=== PATIENT | female | born 1965 | race Caucasian/White ===

== ENCOUNTER 2020-05-07 15:02 | Emergency (ER) | payer BC ==
--- OUTSIDE RECORDS SUMMARY | 2020-05-07 16:22 | XMS REPORT | Continuity of Care Document ---
:1965 Author Organization [facility] Information [place] Care Team Providers Name Role Phone [facility] Information Exchange Unavailable Un available Problems Problem Status Onset Classification Date Comments Sourc e Date Reported INCISIONAL HERNIA Active 11/09/19 WITHOUT OBSTRUCTION 20 [facility] Anxiety (finding) Active Problem 12/09/2019 [facility] Medical Group,[facility] Depressive disorder Active Problem 12/09/2019 Medical (disorder) Group,[facility] Disease of thyroid Active Problem 12/09/2019 Medical gland (disorder) Krishna up,[facility] Gastric band Active Problem 12/09/2019 Med ical procedure Group, complication Memoria (disorder) [facility] Gastroesophageal Active Problem 12/09/2019 Medical reflux disease Group ,[facility] (disorder) [facility] History of Active Problem 12/09/2019 Medic al bariatric surgical G roup, procedure [facility] (situation) [facility] Hypertensive Active Problem 12/09/2019 Med ical disorder, systemic G roup, arterial (disorder) [facility] Incisional hernia Active Problem 12/09/2019 [facility] Medical (disorder) Group,[facility] Morbid obesity Active Problem 12/09/2019 [facility] edical (disorder) Group,[facility] Patient encounter Active Problem 12/09/2019 [facility] Medical status (finding) Krishna up,[facility] Medications Medication Details Route Status Patient Ordering Order Source Instructions Provider Date tramadol 50 mg, 1 tab, Inactive hydrochloride 50 Route: PO, Drug 2019 [facility] Oral Tablet form: TAB, [facility] ONCE, Dosing Weight 131.003, kg, Start date: 11/20/19 10:57:00 CDT, Stop date: 11/20/19 10:57:00 CDT dexamethasone Route: IV, Drug Inactive H (ANES) form: INJ, 2019 [facility] ONCE, Stop [facility] date: 11/20/19 9:51:00 CDT famotidine (ANES) Route: IV, Drug Inactive 11/19 form: INJ, 2019 [facility] ONCE, Stop [facility] date: 11/20/19 9:51:00 CDT ondansetron (ANES) Route: IV, Drug Inactive 11/09 form: INJ, 2019 date: 11/20/19 9:51:00 CDT sugammadex (ANES) Route: IV, Drug Inactive 11/19 form: SOLN 2019 date: 11/20/19 9:51:00 CDT fentaNYL (ANES) Route: IV, Drug Inactive form: INJ, 2019, date: 11/20/19 9:50:00 CDT lidocaine (ANES) Route: IV, Drug Inactive form: [id number] date: 11/20/19 9:50:00 CDT propofol (ANES) Route: IV, Drug Inactive form: [id number] date: 11/20/19 9:50:00 CDT rocuronium (ANES) Route: IV, Drug Inactive 11/19 form: INJ, 2019, date: 11/20/19 9:50:00 CDT ceFAZolin (ANES) Route: IV, Drug Inactive form: [id number] date: 11/20/19 9:50:00 CDT succinylcholine Route: IV, Drug Inactive (ANES) form: INJ2019 date: 11/20/19 9:50:00 CDT midazolam (ANES) Route: IV, Drug Inactive form: SOLN, 2019, date: 11/20/19 9:35:00 CDT acetaminophen Route: IV, Drug Inactive H (ANES) 10 mg form: INJ, 2019 date: 11/20/19 9:22:00 CDT, Stop date: 11/20/19 10:22:00 CDT Lactated Ringers Route: IV, Inactive Injection [facility] mL 1,000, Start City date: 11/20/19 9:03:00 CDT, Stop date: 11/20/19 10:03:00 CDT Calcium Chloride 1,000 mL, Rate: No Longer 11/19 0.0014 MEQ/ML / 125 ml/hr, [facility] Pot[facility] Chloride Infuse over: [facility] 0.004 MEQ/ML / hr, Route: IV, Sodium Chloride Dosing Weight 0.103 MEQ/ML / 131.003 kg, Sodium Lactate Total Volume: 0.028 MEQ/ML 1,000, Start Injectable date: 11/20/19 Solution 9:02:00 CDT, Duration: 30 day, Stop date: 12/20/19 9:01:00 CDT, 2.59, m2, 0 Acetaminophen Notes: Do not No Longer exceed [address] gm/day. (Same City as: Tylenol) Acetaminophen 21.7 Notes: Do not No Longer 11/19 MG/ML / exceed 4gm/day [address] Hydrocodone of [facility] Bitartrate 0.67 acetaminophen. MG/ML Oral (Same as: [place] Solution 325/7.5) Promethazine Notes: Do not No Longer give IV push. [address] (Same as: [facility] Phenergan) enalapril Notes: (Same No Longer as: Vasotec-IV) [address] Ondansetron 4 MG 4 mg = 1 tab, Active H Oral Tablet PO, Q6H, PRN 2019 Mem[facility] l [Zofran] Nausea/[place] , # 30 tab, 0 Refill(s), Pharmacy: [facility] #[id number], 180.34, cm, 11/20/19 8:26:00 CDT, Height, 131.003, kg, 11/20/19 8:26:00 CDT, Weight tramadol 50 mg = 1 tab, Active hydrochloride 50 PO, BID, X 15 2019 [facility] MG Oral Tablet day, # 30 tab, Ci ty 0 Refill(s), Pharmacy: [facility] #[id number], 180.34, cm, 11/20/19 8:26:00 CDT, Height, 131.003, kg, 11/20/19 8:26:00 CDT, Weight Labetalol Notes: (Same No Longer as: Normodyne, [address] Trandate) Push City over 2 minutes Give bolus over 2-3 minutes. Morphine Notes: (Same No Longer as:MORPhine [address] Sulfate) [facility] Hydromorphone Notes: Same as No Longer H Dilaudid [address] Flumazenil Notes: (Same No Longer as: Romazicon) [address] Naloxone Notes: Same as No Longer Narcan [address] Ephedrine Notes: final No Longer concentration [address] mg/mL [facility] Albuterol 0.83 Notes: SEE RT No Longer H MG/ML Inhalant DOCUMENTATION [address] orial Solution (Same as: [facility] Proventil) Diphenhydramine Notes: (Same No Longer H as: Benadryl) [address] glycopyrronium Notes: (Same No Longer as: Robinul) [address] Meperidine Notes: (Same No Longer as: Demerol) [address] "Use Precaution [place] in Elderly, Seizure disorders, and Renal impairment&quot ; Ondansetron Notes: (Same No Longer as: Zofran) [address] MEDICATION City WASTE Product Size: 4 mg Product Wasted: ___ mg ceFAZolin + Notes: (Same No Longer sterile water 30 As: Ancef, 2019 Chivo rial mL Kefzol) [facility] MEDICATION WASTE Product Size: 1000 mg Product Wasted: ___ mg heparin Notes: porcine No Longer heparin [address] Oracea 40 mg, PO, QAM, Active 0 Refill(s) 2019 [facility] Doxycycline 40 MG 40 mg = 1 cap, Active Enteric Coated PO, QAM, 0 [facility] [Oracea] Refill(s) [facility] duloxetine 60 MG 60 mg = 1 cap, Active Enteric Coated PO, Daily, # 30 2019 [facility] Capsule [Cymbalta] cap, 1 City Refill(s) brexpiprazole 2 MG 2 mg = 1 tab, Active Oral Tablet PO, Daily, 0 2019 Memoria l [Rexulti] Refill(s) [facility] atomoxetine 40 MG 40 mg = 1 cap, Active Oral Capsule PO, QA, # 90 2019 Mem[facility] ial [Strattera] cap, 0 [facility] Refill(s) lisdexamfetamine 50 mg = 1 cap, Active dimesylate 50 MG PO, QAM, # 30 2019 M [facility] Oral Capsule cap, 0 [facility] [Vyvanse] Refill(s) losartan 50 mg 50 mg = 1 tab, Active oral tablet PO, Daily, # 30 2019 Chivo rial tab, 1 City Refill(s) levothyroxine 100 100 microgram = Active mcg (0.1 mg) oral 1 tab, PO, 2020 Mem orial tablet Daily, # 90 City tab, 0 Refill(s) Allergies, Adverse Reactions, Alerts Substance Category Reaction Severity Reaction Status Date Comments S ource type Reported aspirin Assertion Hives, Drug Active Hives allergy Medical Group Immunizations No Data Provided for This Section Results Order Name Results Value Reference Date Interpretation Comments Aracely rce Range IMMUNOLOGY Coronavirus Not Detected Not 11/15 (COVID-19) *NA* Detected /2019 [facility] (11/16/19 11:09 AM) [facility] CHEM PANEL Glucose Lvl 109 70 - 99 11/15 [facility] ELECTROLYTES Sodium Lvl 140 135 - 145 11/15 [facility] ELECTROLYTES Potassium Lvl 4.1 3.5 - 5.1 11/15 [facility] HEMATOLOGY Hgb 12.7 12.0 - 11/15 16.0 [facility] HEMATOLOGY Hct 38.0 36.0 - 11/15 48.0 [facility] Pathology Reports No Data Provided for This Section Diagnostic Reports No Data Provided for This Section Consultation Notes No Data Provided for This Section Discharge Summaries No Data Provided for This Section History and Physicals No Data Provided for This Section Vital Signs Vital Sign Value Date Comments Source Respitory Rate 18 11/20/2019 [facility] C ity Systolic (mm Hg) 147 11/20/2019 [facility] Diastolic (mm Hg) 77 11/20/2019 Memoria l [facility] Respitory Rate 19 11/20/2019 [facility] it Systolic (mm Hg) 163 11/20/2019 [facility] Diastolic (mm Hg) 85 11/20/2019 [facility] Respitory Rate 18 11/20/2019 [facility] it Systolic (mm Hg) 158 11/20/2019 [facility] Diastolic (mm Hg) 74 11/20/2019 [facility] Height 180.34 cm 11/20/2019 [facility] Cit y Weight 131.003 11/20/2019 [facility] Cit y BMI Calculated 40.28 11/20/2019 [facility] ity Heart Rate 99 11/16/[address] [facility] y Systolic (mm Hg) 150 11/16/2019 [facility] Diastolic (mm Hg) 93 11/16/2019 [facility] [place] Height 172.72 cm 11/16/[address] [facility] y Weight 128.182 11/16/[address] [facility] y BMI Calculated 42.97 11/16/2019 [facility] it Encounters Location Location Encounter Encounter Reason Attending ADM [place] Stat us Source Details Type Number For Provider Date Date Visit Outpatient [id number] Bi 11/04 [facility] /[address] [place] [address] Surgery [id number] Bi 11/19 11/19 [facility] /20192020 [facility] Outpatient [id number] Bi 12/06 [facility] [address] [place] [address] Outpatient [id number] Bi 12/06 12/07 [facility] [place] [facility] [id number] Bi 12/[address] Procedures Procedure Code Date Perfomer Comments Source Diabetic retinal eye [id number] [facility] edical exam 0 Group,[facility] Pap smear and HPV [id number] Medical cotesting 9 Group,[facility] Diagnostic mammogram [id number] [facility] edical 7 Group,[facility] Laparoscopic [id number] Medical cholecystectomy 3 Group,[facility] Arthroscopy of knee [id number] [facility] dical 0 Group,[facility] Laparoscopic [id number] Medical adjustable gastric 6 Group, banding [facility] Assessment and Plan No Data Provided for This Section Plan of Care No Data Provided for This Section Social History Social History Date Source Social History TypeResponse 11/16/2019 [facility] Smoking Status Never smoker; Exposure to Tobacco Smoke None; Cigarette Smoking Last 365 Days No; Reg Smoking Cessation Counseling No entered on: 11/16/19 Social History TypeResponse 11/16/2019 [facility] Smoking Status Never smoker; Exposure to Tobacco Smoke None; Cigarette Smoking Last 365 Days No; Reg Smoking Cessation Counseling No entered on: 11/16/19 Family History No Data Provided for This Section Advance Directives No Data Provided for This Section Functional Status No Data Provided for This Section
--- OUTSIDE RECORDS SUMMARY | 2020-05-07 16:23 | XMS REPORT | Continuity of Care Document ---
:[address] [facility] t Address [address] [place] [address] Care Team Providers Name Role Phone Bi Gunn Attending Clinician Payers Payer Name Policy Type Policy Number Effective Date Expiration Date S ource Problems Condition Condition Condition Status Onset Resolution Last Treating Co mments Source Name Details Category Date Date Treatment Clinician Date INCISIONAL Diagnosis Active 2019-11-20 Memoria HERNIA 11-08 07:25:00 l WITHOUT 00:00: Tonio OBSTRUCTIO INCISIONAL 00 N OR HERNIA WITHOUT OBSTRUCTIO N OR Active 11/09/[address] [facility] Anxiety Problem Active 2019-12-09 Chivo kandice (finding) 23:49:40 l Anxiety [place] (finding) Active Problem 12/09/2019 Medical [facility] Depressive Problem Active 2019-12-09 M emoria disorder 23:49:40 l (disorder) Bijan n Depressive disorder (disorder) Active Problem 12/09/2019 Medical [facility] Disease of Problem Active 2019-12-09 M emoria thyroid 23:49:40 l gland Disease Tonio (disorder) of thyroid gland (disorder) Active Problem 12/09/2019 Medical [facility] Gastric Problem Active 2019-12-09 Chivo kandice band 23:49:40 l procedure Gastric Herm annamarie complicati band on procedure (disorder) complicati on (disorder) Active [facility]09[facility] Gastroesop Problem Active 2019-12-09 M emoria hageal 23:49:40 l reflux [place] disease Gastroesop (disorder) hageal reflux disease (disorder) Active Problem 12/09/2019 Medical Group,[facility] History of Problem Active 2019-12-09 M emoria bariatric 23:49:40 l surgical History Meryl nn procedure of (situation bariatric ) surgical procedure (situation ) Active Problem 12/09/2019 Medical Group,[facility] Hypertensi Problem Active 2019-12-09 M emoria ve 23:49:40 l disorder, [place] systemic Hypertensi arterial ve (disorder) disorder, systemic arterial (disorder) Active Problem 12/09/2019 Medical Group,[facility] Incisional Problem Active 2019-12-09 M emoria hernia 23:49:40 l (disorder) Bijan n Incisional hernia (disorder) Active Problem 12/09/2019 Medical Group,[facility] Morbid Problem Active 2019-12-09 Memor ia obesity 23:49:40 l (disorder) Morbid Herm annamarie obesity (disorder) Active Problem 12/09/2019 Medical [facility] Patient Problem Active 2019-12-09 Chivo kandice encounter 23:49:40 l status Patient [place] (finding) encounter status (finding) Active Problem 12/09/2019 Medical [facility] Allergies, Adverse Reactions, Alerts Allergy Allergy Status Severity Reaction(s) Onset Inactive Treating Comm ents Source Name Type Date Date Clinician aspirin aspirin Active Ciarra Elizalde Social History Smoking Status Start Date Stop Date Source Social History [facility] Medications Ordered Filled Start Stop Current Ordering Indication Dosage Frequency Signature Comments Components Source Medication Medication Date Date Medication? Clinician (SIG) Name Name tramadol No 50 mg, 1 Memor ia hydrochlori 8-11 tab, l de 50 MG 15:57: Route: PO, Her vicente Oral Tablet 00 Drug form: TAB, ONCE, Dosing Weight 131.003, kg, Start date: 11/20/19 10:57:00 CDT, Stop date: 11/20/19 10:57:00 CDT dexamethaso No Route: IV, Memoria ne (ANES) 11-19 Drug form: l 14:51: INJ, ONCE, Tonio 00 Stop date: 11/20/19 9:51:00 CDT famotidine No Route: IV, M emoria (ANES) 11-19 Drug form: l 14:51: INJ, ONCE, Stop date: 11/20/19 9:51:00 CDT ondansetron 2020-0 No Route: IV, Memoria (ANES) 11-19 Drug form: l 14:51: INJ, ONCE, Stop date: 11/20/19 9:51:00 CDT sugammadex 2020-0 No Route: IV, Malou emoria (ANES) 11-19 Drug form: l 14:51: SOLN, ONCE, Stop date: 11/20/19 9:51:00 CDT fentaNYL 2020-0 No Route: IV, Mem oria (ANES) 11-19 Drug form: l 14:50: INJ, ONCE, Stop date: 11/20/19 9:50:00 CDT lidocaine 2020-0 No Route: IV, Me moria (ANES) 11-19 Drug form: l 14:50: INJ, ONCE, Stop date: 11/20/19 9:50:00 CDT propofol 2020-0 No Route: IV, Mem oria (ANES) 11-19 Drug form: l 14:50: INJ, ONCE, Stop date: 11/20/19 9:50:00 CDT rocuronium 2019-0 No Route: IV, Malou emoria (ANES) 11-19 Drug form: l 14:50: INJ, ONCE, Stop date: 11/20/19 9:50:00 CDT ceFAZolin 2020-0 No Route: IV, Me moria (ANES) 11-19 Drug form: l 14:50: INJ, ONCE, Stop date: 11/20/19 9:50:00 CDT succinylcho 2020-0 No Route: IV, Memoria line (ANES) 11-19 Drug form: l 14:50: INJ, ONCE, Stop date: 11/20/19 9:50:00 CDT midazolam 2020-0 No Route: IV, Me moria (ANES) 11-19 Drug form: l 14:35: SOLN, ONCE, Stop date: 11/20/19 9:35:00 CDT acetaminoph 2020-0 No Route: IV, Memoria en (ANES) 8 Drug form: l 10 mg 14:22: INJ, Start Bijan n 00 date: 11/20/19 9:22:00 CDT, Stop date: 11/20/19 10:22:00 CDT Lactated 2019- No Route: IV, Mem oria Ringers 8- Total l Injection 14:03: Volume: Meryl nn IV (ANES) 00 1,000, 1000 mL Start date: 11/20/19 9:03:00 CDT, Stop date: 11/20/19 10:03:00 CDT Calcium 2019-0 No 1,000 mL, Memor ia Chloride 11-19 Rate: 125 l 0.0014 14:02: ml/hr, Tonio MEQ/ML / 00 Infuse Potassium over: 8 Chloride hr, Route: 0.004 IV, Dosing MEQ/ML / Weight Sodium 131.003 Chloride kg, Total 0.103 Volume: MEQ/ML / 1,000, Sodium Start Lactate date: 0.028 11/20/19 MEQ/ML 9:02:00 Injectable CDT, Solution Duration: 30 day, Stop date: 12/20/19 9:01:00 CDT, 2.59, m2, 0 Acetaminoph No Notes: Do M emoria en 8- not exceed l 14:02: 4 gm/day. Tonio 00 (Same as: Tylenol) Acetaminoph No Notes: Do M emoria en 21.7 8- not exceed l MG/ML / 14:02: 4gm/day of Herm annamarie Hydrocodone 00 acetaminop Bitartrate hen. 0.67 MG/ML (Same as: Oral [place] Solution 325/7.5) Promethazin No Notes: Do M emoria e 8-11 not give l 14:02: IV push. Tonio 00 (Same as: Phenergan) enalapril No Notes: Memori a - (Same as: l 14:02: Vasotec-IV Tonio 00 ) Ondansetron 2019-0 Yes 4 mg = 1 Me moria 4 MG Oral 8 tab, PO, l Tablet 14:00: Q6H, PRN Tonio [Zofran] 00 Nausea/Vom iting, # 30 tab, 0 Refill(s), Pharmacy: [facility] #[id number], 180.34, cm, 11/20/19 8:26:00 CDT, Height, 131.003, kg, 11/20/19 8:26:00 CDT, Weight tramadol Yes 50 mg = 1 Chivo kandice hydrochlori 8-11 tab, PO, l de 50 MG 14:00: BID, X 15 Herm annamarie Oral Tablet 00 day, # 30 tab, 0 Refill(s), Pharmacy: [facility] #[id number], 180.34, cm, 11/20/19 8:26:00 CDT, Height, 131.003, kg, 11/20/19 8:26:00 CDT, Weight Labetalol No Notes: Memori a - (Same as: l 13:59: Normodyne, Trandate) Push over 2 minutes Give bolus over 2-3 minutes. Morphine No Notes: Memoria 11-19 (Same l 13:59: as:MORPhin [place] 00 e Sulfate) Hydromorpho No Notes: Chivo kandice ne 11-19 Same as l 13:59: Dilaudid Flumazenil No Notes: Memor ia 11 (Same as: l 13:59: Romazicon) Naloxone No Notes: Memoria 8-11 Same as l 13:59: Narcan Ephedrine No Notes: Memori a 8-11 final l 13:59: concentrat Tonio 00 ion 5 mg/mL Albuterol No Notes: SEE Me moria 0.83 MG/ML 11-19 RT l Inhalant 13:59: DOCUMENTAT Her vicente Solution 00 ION (Same as: Proventil) Diphenhydra No Notes: Chivo kandice mine 8-11 (Same as: l 13:59: Benadryl) glycopyrron No Notes: Chivo kandice ium 8-11 (Same as: l 13:59: Robinul) Meperidine No Notes: Memor ia 8-11 (Same as: l 13:59: Demerol) "Use Precaution in Elderly, Seizure disorders, and Renal impairment " Ondansetron 2019-0 No Notes: Chivo kandice 11-19 (Same as: l 13:59: Zofran) MEDICATION WASTE Product Size: 4 mg Product Wasted: ___ mg ceFAZolin + 2020-0 No Notes: Chivo kandice sterile 11-19 (Same As: l water 30 mL 03:00: AncMarlon coburn Kefzol) MEDICATION WASTE Product Size: 1000 mg Product Wasted: ___ mg heparin 2020-0 No Notes: Memoria 11-19 porcine l 03:00: heparin Oracea 2020-0 Yes 40 mg, PO, Memor ia 8-07 QAM, 0 l 15:30: Refill(s) Doxycycline 2020-0 Yes 40 mg = 1 M emoria 40 MG 8-07 cap, PO, l Enteric 15:30: QAM, 0 [place] Coated 00 Refill(s) Capsule [Oracea] duloxetine 2020-0 Yes 60 mg = 1 Me moria 60 MG 8-07 cap, PO, l Enteric 15:29: Daily, # Bijan n Coated 00 30 cap, 1 Capsule Refill(s) [Cymbalta] brexpiprazo 2019-0 Yes 2 mg = 1 Me moria le 2 MG 8-07 tab, PO, l Oral Tablet 15:29: Daily, 0 He rmann [Rexulti] 00 Refill(s) atomoxetine 2020-0 Yes 40 mg = 1 M emoria 40 MG Oral 8-07 cap, PO, l Capsule 15:29: QAM, # 90 Meryl nn [Strattera] 00 cap, 0 Refill(s) lisdexamfet 2020-0 Yes 50 mg = 1 M emoria amine 8-07 cap, PO, l dimesylate 15:29: QAM, # 30 He rmann 50 MG Oral 00 cap, 0 Capsule Refill(s) [Vyvanse] losartan 50 2020-0 Yes 50 mg = 1 M emoria mg oral 8-07 tab, PO, l tablet 15:28: Daily, # Tonio 00 30 tab, 1 Refill(s) levothyroxi 2020-0 Yes 100 Memori a ne 100 mcg 8-07 microgram l (0.1 mg) 15:28: = 1 tab, Meryl nn oral tablet 00 PO, Daily, # 90 tab, 0 Refill(s) Vital Signs Vital Name Observation Time Observation Value Comments Source Respitory Rate 2019-11-20 16:20:00 Memori al [place] Systolic (mm Hg) 2019-11-20 16:20:00 Chivo rial [place] Diastolic (mm Hg) 2019-11-20 16:20:00 Mem orial [place] Respitory Rate 2019-11-20 16:15:00 Memori al [place] Systolic (mm Hg) 2019-11-20 16:15:00 Chivo rial [place] Diastolic (mm Hg) 2019-11-20 16:15:00 Mem orial [place] Respitory Rate 2019-11-20 16:00:00 Memori al [place] Systolic (mm Hg) 2019-11-20 16:00:00 Chivo rial [place] Diastolic (mm Hg) 2019-11-20 16:00:00 [facility] orial [place] Height 2019-11-20 13:26:00 180.34 cm [facility] Weight 2019-11-20 13:26:00 [facility] BMI Calculated 2019-11-20 13:26:00 Memori al [place] Heart Rate 2019-11-16 15:30:00 [facility] [place] Systolic (mm Hg) 2019-11-16 15:30:00 Chivo rial [place] Diastolic (mm Hg) 2019-11-16 15:30:00 [facility] orial [place] Height 2019-11-16 15:07:00 172.72 cm [facility] Weight 2019-11-16 15:07:00 [facility] BMI Calculated 2019-11-16 15:07:00 Katiana [facility] Procedures Procedure Date / Time Performing Clinician Source Performed Diabetic retinal eye exam 2019-04-11 00:00:00 Ak edward Elizalde Pap smear and HPV cotesting 2018-04-11 00:00:00 [facility] Diagnostic mammogram 2016-04-11 00:00:00 Ciarra Elizalde Laparoscopic 2012-04-11 00:00:00 [facility] Her vicente cholecystectomy Arthroscopy of knee 2009-04-11 00:00:00 [facility] Tonio Laparoscopic adjustable 2005-04-11 00:00:00 Chivokira davis [place] gastric banding Encounters Start End Encounter Admission Attending Care Care Encounter Source Date/Time Date/Time Type Type Clinicians Facility Department ID 2019-12-07 2019-12-07 Outpatient Luis A [facility] [id number] 11:00:00 23:59:59 Bi 01 2019-11-20 2019-11-20 Outpatient Luis A [facility] [id number] 07:23:00 11:50:00 Bi 2019-11-20 2019-11-20 Outpatient Luis A [facility] [id number] 09:30:00 09:30:00 Bi 2019-11-20 2019-11-20 Outpatient [facility]500 Memoria 07:23:00 07:23:[address] [place] [facility] l Results Test Description Test Time Test Comments Results Result Sourc e Comments IMMUNOLOGY 2019-11-16 Not Detected [facility] 16:09:00 *NA*(11/16/19 Tonio 11:09 AM) CHEM PANEL 2019-11-16 109 [facility] 15:37:00 [place] ELECTROLYTES 2019-11-16 140 [facility] 15:37:00 [place] ELECTROLYTES 2019-11-16 4.1 [facility] 15:37:00 [place] HEMATOLOGY 2019-11-16 12.7 [facility] 15:37:00 [place] HEMATOLOGY 2019-11-16 38.0 Memorial 15:37:00 Tonio
--- NOTE | 2020-05-07 18:00 | RAD REPORT ---
EXAM DESCRIPTION: USExtremity Venous Uni Ltd05/07/2020 5:38 pm CLINICAL HISTORY: left leg pain and swelling. COMPARISON: 2009 FINDINGS: Left common femoral, superficial femoral, popliteal and posterior tibial veins are compre ssible and demonstrate augmentation. Doppler demonstrates good flow. IMPRESSION: No evidence of deep venous thrombosis involving the left lower extremity.
--- NOTE | 2020-05-07 21:48 | ER ---
Nurse's Notes [facility] Name: Chandler Conte Age: 54 yrs Sex: Female : 1965 Arrival Date: 05/07/2020 Time: 15:08 Bed 4 Private MD: Griffin Daugherty V Diagnosis: Pain in left knee Presentation: 05/07 15:50 Chief complaint: Patient states: left knee pain x 4 weeks ago. Pt states "I saw Dr. leslye Kerns about 3 weeks ago and he gave me a steroid shot and he said I need an MRI but I thought I was going to be okay". Pt reports increased left knee pain x 2 days ago. Coronavirus screen: Client denies travel out of the [place] in the last 14 days. At this time, the client does not indicate any symptoms associated with coronavirus-19. Ebola Screen: Patient negative for fever greater than or equal to 101.5 degrees Fahrenheit, and additional compatible Ebola Virus Disease symptoms. Initial Sepsis Screen: Does the patient meet any 2 criteria? No. Patient's initial sepsis screen is negative. Does the patient have a suspected source of infection? No. Patient's initial sepsis screen is negative. Risk Assessment: Do you want to hurt yourself or someone else? Patient reports no desire to harm self or others. Onset of symptoms was March 2020. 15:50 Acuity: DAVID 3 aa5 15:50 Method Of Arrival: Ambulatory aa5 Historical: - Allergies: 15:54 Aspirin; aa5 - Home Meds: 15:54 losartan oral oral [Active]; Cymbalta oral oral [Active]; levothyroxine oral [Active]; aa5 - PMHx: 15:54 Hypertension; Thyroid problem; aa5 - PSHx: 15:54 Tubal ligation; Mastectomy, Right; ; Knee surgery; Cholecystectomy; lap band; aa5 - Immunization history:: Adult Immunizations unknown. - Social history:: Smoking status: Patient denies any tobacco usage or history of. - Family history:: not pertinent. - Hospitalizations: : No recent hospitalization is reported. Screenin:30 Abuse screen: Denies threats or abuse. Nutritional screening: No deficits noted. ea Tuberculosis screening: No symptoms or risk factors identified. Fall Risk IV access (20 points). Assessment: 21:31 General: Appears in no apparent distress. Behavior is calm, cooperative, appropriate ea for age. Pain: Complains of pain in left knee. Neuro: Level of Consciousness is awake, alert, obeys commands, Oriented to person, place, time, situation. Cardiovascular: Patient's skin is warm and dry. Respiratory: Airway is patent Respiratory effort is even, unlabored, Respiratory pattern is regular, symmetrical. Derm: Skin is pink, warm \\T\\ dry. Vital Signs: 15:50 BP 179 / 110; Pulse 107; Resp 20 S; Temp 97.0(TE); Pulse Ox 99% on R/A; aa5 ED Course: 15:08 Patient arrived in ED. am4 15:09 Salbador Jimenez MD is Private Physician. am4 15:09 Griffin Daugherty MD is Private Physician. am4 15:50 Arm band placed on. aa5 15:52 Triage completed. aa5 17:19 Patient taken to ultrasound. via wheelchair. is 17:38 US Extremity Venous Unilateral Ltd In Process Unspecified. EDMS 17:38 Ultrasound completed. Patient tolerated well. Patient moved back from ultrasound. is 21:26 Bessie Crespo, RN is Primary Nurse. ea 21:27 Jcarlos Maddox MD is Attending Physician. rn 21:30 Patient has correct armband on for positive identification. Bed in low position. Call ea light in reach. Side rails up X2. 21:47 Mike Kerns MD is Referral Physician. rn 22:01 No provider procedures requiring assistance completed. Patient did not have IV access ea during this emergency room visit. Administered Medications: 21:48 Drug: Decadron 10 mg Route: IM; Site: right vastus lateralis; ea 22:02 Follow up: Response: No adverse reaction ea 21:48 Drug: Demerol 25 mg Route: IM; Site: left vastus lateralis; ea 22:01 Follow up: Response: No adverse reaction ea Outcome: 21:47 Discharge ordered by . rn 22:01 Discharged to home via wheelchair, with crutches. ea 22:01 Condition: good 22:01 Discharge instructions given to patient, Instructed on discharge instructions, follow up and referral plans. medication usage, Demonstrated understanding of instructions, follow-up care, medications, Prescriptions given X 1. 22:02 Patient left the ED. ea Signatures: Dispatcher [employer] Jcarlos Mccarty MD MD rn Calderon, Audri, RN RN aa5 Bessie Crespo RN DEBRA Squires, Francie Delgado
--- NOTE | 2020-05-07 21:48 | EDPHYS ---
Physician Documentation [facility] Name: Chandler Conte Age: 54 yrs Sex: Female : 1965 Arrival Date: 05/07/2020 Time: 15:08 Bed 4 Private MD: Griffin Daugherty V ED Physician Jcarlos Maddox HPI: 05/07 21:40 This 54 yrs old Female presents to ER via Ambulatory with complaints of Knee rn Pain. 21:40 The patient presents with pain. The complaints affect the left knee. Onset: The rn symptoms/episode began/occurred 3 week(s) ago. Modifying factors: The symptoms are alleviated by OTC meds, remaining still, the symptoms are aggravated by weight bearing, bending knee. Severity of symptoms: At their worst the symptoms were moderate, in the emergency department the symptoms are unchanged. The patient has not experienced similar symptoms in the past. The patient has been recently seen by a physician:. Reports left knee pain, began 3-4 weeks ago after long car ride, seen by Dr. Kerns, had negative xray, had intraarticular injection, never really felt better. Has MRI scheduled tomorrow. Reports was having trouble sleeping 2/2 pain, none prescribed, and came in for pain control and to see if anything else needs to be done. No fever, no hx of gout/pseudogout. No trauma. . Historical: - Allergies: 15:54 Aspirin; aa5 - Home Meds: 15:54 losartan oral oral [Active]; Cymbalta oral oral [Active]; levothyroxine oral [Active]; aa5 - PMHx: 15:54 Hypertension; Thyroid problem; aa5 - PSHx: 15:54 Tubal ligation; Mastectomy, Right; ; Knee surgery; Cholecystectomy; lap band; aa5 - Immunization history:: Adult Immunizations unknown. - Social history:: Smoking status: Patient denies any tobacco usage or history of. - Family history:: not pertinent. - Hospitalizations: : No recent hospitalization is reported. ROS: 21:40 Constitutional: Negative for fever, chills, and weight loss, Cardiovascular: Negative rn for chest pain, palpitations, and edema, Respiratory: Negative for shortness of breath, cough, wheezing, and pleuritic chest pain, MS/Extremity: + left knee pain, no redness or warmth, no injury Skin: Negative for injury, rash, and discoloration, Neuro: Negative for weakness, numbness, tingling Exam: 21:40 Constitutional: This is a well developed, well nourished patient who is awake, alert, rn and in no acute distress. MS/ Extremity: Pulses equal, no cyanosis. Neurovascular intact. + mild painful ROM left knee without laxity, no warmth, no erythema, no overlying skin changes, no calf tenderness Vital Signs: 15:50 BP 179 / 110; Pulse 107; Resp 20 S; Temp 97.0(TE); Pulse Ox 99% on R/A; aa5 MDM: 21:27 Patient medically screened. rn 21:40 Differential diagnosis: tendonitis, arthritis, knee effusion, DVT. Data reviewed: vital rn signs, nurses notes, radiologic studies, doppler, and as a result, I will discharge patient. Counseling: I had a detailed discussion with the patient and/or guardian regarding: the historical points, exam findings, and any diagnostic results supporting the discharge/admit diagnosis, radiology results, the need for outpatient follow up, to return to the emergency department if symptoms worsen or persist or if there are any questions or concerns that arise at home. Response to treatment: the patient's symptoms have mildly improved after treatment, and as a result, I will discharge patient. Special discussion: I discussed with the patient/guardian in detail that at this point there is no indication for admission to the hospital. It is understood, however, that if the symptoms persist or worsen the patient needs to return immediately for re-evaluation. Based on the history and exam findings, there is no indication for further emergent testing or inpatient evaluation. I discussed with the patient/guardian the need to see the orthopedic surgeon for further evaluation of the symptoms. ED course: Has MRI tomorrow, no signs of infection, neg DVT study, will alleviate some of the pain, and dc home for MRI tomorrow. Xray obtained as oupt and neg, also no acute traumatic story. . 05/07 16:33 Order name: US Extremity Venous Unilateral Ltd; Complete Time: 21:28 iw Administered Medications: 21:48 Drug: Decadron 10 mg Route: IM; Site: right vastus lateralis; ea 22:02 Follow up: Response: No adverse reaction ea 21:48 Drug: Demerol 25 mg Route: IM; Site: left vastus lateralis; ea 22:01 Follow up: Response: No adverse reaction ea Disposition: 05/07/20 21:47 Discharged to Home. Impression: Pain in left knee. - Condition is Stable. - Discharge Instructions: Knee Pain. - Prescriptions for Ultram 50 mg Oral Tablet - take 1 tablet by ORAL route every 6 hours As needed; 12 tablet. - Medication Reconciliation Form, Thank You Letter, Antibiotic Education, Prescription Opioid Use form. - Follow up: Mkie Kerns MD; When: As needed; Reason: Recheck today's complaints, Re-evaluation by your physician. - Problem is an ongoing problem. - Symptoms have improved. Signatures: Dispatcher [employer] EDJcarlos Keyes MD MD rn Calderon, Audri RN RN aa5 Bessie Crespo RN RN ea Corrections: (The following items were deleted from the chart) 22:02 21:47 05/07/2020 21:47 Discharged to Home. Impression: Pain in left knee. Condition is ea Stable. Forms are Medication Reconciliation Form, Thank You Letter, Antibiotic Education, Prescription Opioid Use. Follow up: Mike Kerns; When: As needed; Reason: Recheck today's complaints, Re-evaluation by your physician. Problem is an ongoing problem. Symptoms have improved. rn
[2020-05-07] MEDS ORDERED: dexAMETHasone 10 MG/ML VIAL ONE (21:58)
[2020-05-07] MEDS ORDERED: MEPERIDINE HCL 25 MG/ML SYR ONE (21:59)
[2020-05-07 22:10] VITALS: BP 179/110; TEMP 97; O2SAT 99
== END 2020-05-07 22:02 | disposition home or self-care (01) ==
LOC: ER 15:02
DX: M25.562 Pain in left knee (principal); I10 Essential (primary) hypertension; E03.9 Hypothyroidism, unspecified
CPT/HCPCS: 93971; 96372; 99284; J1100; J2175

== ENCOUNTER 2024-05-04 19:23 | Emergency (ER) | payer BC ==
[2024-05-04 20:42] LABS: Absolute Basophils 0.1 K/uL (0-0.5); Absolute Eosinophils 0.2 K/uL (0-0.5); Absolute Lymphocytes (CBC) 1.2 K/uL (0.7-4.9); Absolute Monocytes 0.7 K/uL (0.1-1.3); Absolute Neutrophil 8.6 K/uL (1.8-8.0); Basophils % 0.5 % (0-1.3); Eosinophils % 1.6 % (0-4.4); Hematocrit 39.9 % (36.0-45.0); Hemoglobin 13.5 g/dL (12.0-15.0); Lymphocytes % 10.9 % (15.3-44.8); MCH 28.4 pg (27.0-35.0); MCHC 33.8 g/dL (32.0-36.0); MCV 84.1 fL (80-100); MPV 9.7 fL (7.6-11.3); Monocytes % 6.6 % (3.3-12.3); Neutrophils % 80.4 % (41.7-73.7); Platelets 259 thou/uL (152-406); RBC Red Blood Cell Count 4.74 M/uL (3.86-4.86)
[2024-05-04 20:48] LABS: PT Prothrombin Time 12.4 SECONDS (9.4-12.5); PTT, Activated Partial Thromb 31.6 SECONDS (24.3-36.9); Protime INR 1.18
[2024-05-04 21:02] LABS: Albumin 3.1 g/dL (3.4-5.0); Alkaline Phosphatase 74 U/L (45-117); Anion Gap 9.8 mEq/L (5.0-15.0); BUN Blood Urea Nitrogen 16 mg/dL (7-18); Bicarbonate 24 mEq/L (21-32); Bilirubin Total 0.4 mg/dL (0.2-1.0); Glomerular Filtration Rate 80 ml/min (=/>90); Glucose Level 124 mg/dL (74-106); Lipase 38 U/L (13-75); Magnesium 1.6 mg/dL (1.6-2.4); NT PRO-BNP 47 pg/mL (<125); Potassium 2.8 mEq/L (3.5-5.1); Protein, Total 6.1 g/dL (6.4-8.2); Sodium Level 141 mEq/L (136-145); Troponin High Sensitivity 3.1 pg/mL (<58.9)
[2024-05-04 21:03] LABS: ALT/SGPT < 14 U/L (13-56); AST/SGOT < 10 U/L (15-37); Bilirubin Direct < 0.2 mg/dL (0-0.2); Bilirubin Indirect, Calculated 0.2 mg/dL (0.2-0.8)
--- NOTE | 2024-05-04 21:17 | RAD REPORT ---
EXAMINATION: CT HEAD WITHOUT CONTRAST CT CERVICAL SPINE WITHOUT CONTRAST CLINICAL INDICATION: Head and neck injury status post fall. Head and neck pain. Syncope TECHNIQUE: Axial CT images from the skull base to the vertex without intravenous contrast. Axial CT i mages through the cervical spine were obtained without intravenous contrast. Sagittal and coronal reformatted images were created from the data set. Coronal and sagittal reformatted images were creat ed from the data set. One or more of the following dose reduction techniques were used: Automated exposure control, adjustment of the mA and/or kV according to patient size, and/or iterative reconstr uction. Unless otherwise specified, incidental findings do not require dedicated imaging follow-up. [id number]. Comparison: Head CT 2012 FINDINGS: An intracranial bleed is not seen. Ventricles are normal in caliber. Mild low-density areas within and subcortical white matter bilaterally probably indicate ischemic neisha nges secondary to small vessel disease The right tentorium is mildly thicker than the left. This is equivocal for a very small subdural shara marietta. No fluid within the sinuses/mastoids No fracture or dislocation is seen involving the cervical spine. Post surgical changes C3-C6. Anterior plate with screws and bone plugs are present. Spondylosis cervi woo spine IMPRESSION: Equivocal very small subdural hematoma along the right tentorium. Further evaluation with MRI recomme nded A cervical fracture is not seen. Val Mathur in the emergency room was notified 9:13 PM May 04, 2024
--- NOTE | 2024-05-04 21:19 | RAD REPORT ---
Procedure: Chest Single View HISTORY: syncope and malaise COMPARISON: 2013 FINDINGS: The lungs appear clear of acute infiltrate. No significant pleural effusion noted. The heart is normal size. IMPRESSION: No acute abnormality is displayed.
--- NOTE | 2024-05-04 22:08 | ER ---
Nurse's Notes [facility] Name: Chandler Schulte Age: 58 yrs Sex: Female : 1965 Arrival Date: 05/04/2024 Time: 19:23 Bed 25 Private MD: Diagnosis: Syncope Near;Unspecified injury of head, initial encounter;Traumatic subdural hemorrhage-right;Obesity, unspecified;Hypokalemia Presentation: 05/04 19:37 Chief complaint: EMS states: Pt had a syncopal episode while on the toilet. Pt became jb4 diaphoretic and nauseous when changing to the sitting position. Received 4mg of zofran and 250ml of NS and 12.5 of phenergan. Coronavirus screen: At this time, the client does not indicate any symptoms associated with coronavirus-19. Ebola Screen: No symptoms or risks identified at this time. Initial Sepsis Screen: Does the patient meet any 2 criteria? No. Patient's initial sepsis screen is negative. Does the patient have a suspected source of infection? No. Patient's initial sepsis screen is negative. Risk Assessment: Do you want to hurt yourself or someone else? Patient reports no desire to harm self or others. Onset of symptoms was May 04, 2024. Transition of care: patient was not received from another setting of care. 19:37 Method Of Arrival: EMS: [facility] jb4 19:37 Acuity: DAVID 3 jb4 Historical: - Allergies: 19:40 Aspirin; jb4 19:40 NSAIDS (Non-Steroidal Anti-Inflamma; jb4 19:40 [id number] Antimigraine Agents; jb4 - PMHx: 19:40 Hypertension; Thyroid problem; jb4 - PSHx: 19:40 spinal fusion c5-7; jb4 - Immunization history:: Adult Immunizations up to date. - Infectious Disease History:: Denies. - Social history:: Smoking status: Patient denies any tobacco usage or history of. - Family history:: not pertinent. Screenin:53 [facility] ED Fall Risk Assessment (Adult) History of falling in the last 3 months, jb4 including since admission Yes- single mechanical fall (1 pt) Confusion or Disorientation No (0 pts) Intoxicated or Sedated No (0 pts) Impaired Gait No (0 pts) Mobility Assist Device Used No (0 pt) Altered Elimination No (0 pt) Score/Fall Risk Level 0 - 2 = Low Risk Oriented to surroundings, Maintained a safe environment. Abuse screen: Denies threats or abuse. Nutritional screening: No deficits noted. Tuberculosis screening: No symptoms or risk factors identified. Assessment: 19:49 Reassessment: pt placed in C-Collar. General: Appears in no apparent distress. jb4 comfortable, Behavior is calm, cooperative, appropriate for age. Pain: Denies pain. Neuro: Level of Consciousness is awake, alert, obeys commands, Oriented to. Cardiovascular: Patient's skin is warm and dry. Respiratory: Airway is patent Respiratory effort is even, unlabored, Respiratory pattern is regular, symmetrical. GI: Pt vomited per EMS when changing position. Derm: Skin is intact, Skin is pink, warm \T\ dry. Musculoskeletal: Circulation, motion, and sensation intact. Range of motion: intact in all extremities. 22:46 Reassessment: attempted to call report. Instructed to call back in 10 minutes. jb4 Vital Signs: 19:49 BP 147 / 85; Pulse 98; Resp 16; Temp 98.2(TE); Pulse Ox 100% ; Weight 113.4 kg (R); jb4 Height 5 ft. 9 in. ; 19:49 Body Mass Index 36.92 (113.40 kg, 175.26 cm) jb4 Julianne Coma Score: 22:19 Eye Response: spontaneous(4). Motor Response: obeys commands(6). Verbal Response: neisha oriented(5). Total: 15. ED Course: 19:28 Patient arrived in ED. jj6 19:40 Triage completed. jb4 19:41 Arm band placed on right wrist. jb4 19:53 Patient has correct armband on for positive identification. Bed in low position. Call jb4 light in reach. Side rails up X 1. Provided Education on: plan of care. 19:53 No provider procedures requiring assistance completed. Maintain EMS IV. Dressing jb4 intact. Site clean \T\ dry. Gauge \T\ site: 22. Flushed with 10 mL NS. 20:03 Gilberto Macias MD is Attending Physician. neisha 20:07 Chest Single View XRAY In Process Unspecified. EDMS 20:40 CT Head C Spine In Process Unspecified. EDMS 21:59 called [place] to start transfer talked to sp 22:10 Transfer accepted to [place] [facility] by Dr. Salbador Palumbo. Report #[id number]. Transported sp with [facility]. 23:25 Patient transferred, IV remains in place. ha1 Administered Medications: 22:21 Drug: Potassium PO Effervescent Tablet 50 mEq PO once; dissolve in 4 ounces of water or jb4 juice Route: PO; 23:26 Follow up: Response: No adverse reaction ha1 22:21 Drug: NS 0.9% with KCl IV 20 mEq/L 1000 ml IV at 125 ml/hr continuous Route: IV; Rate: jb4 125 ml/hr; Site: right hand; 23:26 Follow up: Response: No adverse reaction; IV Status: Infusion continued ha1 Medication: 19:53 VIS not applicable for this client. jb4 Outcome: 22:07 ER care complete, transfer ordered by MD. driver 23:25 Transferred by ground EMS to [facility], Transfer form completed. X-rays sent ha1 w/ patient. 23:25 Condition: stable 23:25 Instructed on the need for transfer, Demonstrated understanding of instructions, 23:27 Patient left the ED. ha1 Signatures: Dispatcher [employer] EDMS Gilberto Macias MD MD cha Pinkerton, Shawna sp Bryson, James, RN RN jb4 Eloise Pena Heidy, RN RN ha1 Corrections: (The following items were deleted from the chart) 20:04 19:49 Pulse 98bpm; Resp 16bpm; Pulse Ox 100%; Temp 96.7F Temporal; 113.4 kg Reported; jb4 Height 5 ft. 9 in.; BMI: 36.9; jb4
--- NOTE | 2024-05-04 22:08 | EDPHYS ---
Physician Documentation [facility] Name: Chandler Schulte Age: 58 yrs Sex: Female : 1965 Arrival Date: 05/04/2024 Time: 19:23 Bed 25 Private MD: ED Physician Gilberto Macias HPI: 05/04 22:02 This 58 yrs old Female presents to ER via EMS with complaints of Syncope. neisha 22:02 The patient has experienced syncope, became unresponsive. Onset: The symptoms/episode neisha began/occurred just prior to arrival. Duration: This was a single episode, that lasted 10 second(s). Context: the episode(s) was witnessed, by family, . Associated injury: Head/face: contusion. Associated signs and symptoms: Pertinent positives: dizziness. Current symptoms: headache, that is moderate. The patient has not experienced similar symptoms in the past. Historical: - Allergies: 19:40 Aspirin; jb4 19:40 NSAIDS (Non-Steroidal Anti-Inflamma; jb4 19:40 [id number] Antimigraine Agents; jb4 - PMHx: 19:40 Hypertension; Thyroid problem; jb4 - PSHx: 19:40 spinal fusion c5-7; jb4 - Immunization history:: Adult Immunizations up to date. - Infectious Disease History:: Denies. - Social history:: Smoking status: Patient denies any tobacco usage or history of. - Family history:: not pertinent. ROS: 22:02 Constitutional: Negative for fever, chills, and weight loss, Eyes: Negative for injury, neisha pain, redness, and discharge, ENT: Negative for injury, pain, and discharge, Neck: Negative for injury, pain, and swelling, Cardiovascular: Negative for chest pain, palpitations, and edema, Respiratory: Negative for shortness of breath, cough, wheezing, and pleuritic chest pain, Abdomen/GI: Negative for abdominal pain, nausea, vomiting, diarrhea, and constipation, Back: Negative for injury and pain, : Negative for injury, bleeding, discharge, and swelling, MS/Extremity: Negative for injury and deformity, Skin: Negative for injury, rash, and discoloration, Psych: Negative for depression, anxiety, suicide ideation, homicidal ideation, and hallucinations, Allergy/Immunology: Negative for hives, rash, and allergies, Endocrine: Negative for neck swelling, polydipsia, polyuria, polyphagia, and marked weight changes, Hematologic/Lymphatic: Negative for swollen nodes, abnormal bleeding, and unusual bruising, 22:02 Neuro: Positive for dizziness, headache, syncope, near syncope, Exam: 22:02 Constitutional: This is a well developed, well nourished patient who is awake, alert, neisha and in no acute distress. Eyes: Pupils equal round and reactive to light, extra-ocular motions intact. Lids and lashes normal. Conjunctiva and sclera are non-icteric and not injected. Cornea within normal limits. Periorbital areas with no swelling, redness, or edema. ENT: Nares patent. No nasal discharge, no septal abnormalities noted. Tympanic membranes are normal and external auditory canals are clear. Oropharynx with no redness, swelling, or masses, exudates, or evidence of obstruction, uvula midline. Mucous membranes moist. Neck: Trachea midline, no thyromegaly or masses palpated, and no cervical lymphadenopathy. Supple, full range of motion without nuchal rigidity, or vertebral point tenderness. No Meningismus. Chest/axilla: Normal chest wall appearance and motion. Nontender with no deformity. No lesions are appreciated. Cardiovascular: Regular rate and rhythm with a normal S1 and S2. No gallops, murmurs, or rubs. Normal PMI, no JVD. No pulse deficits. Respiratory: Lungs have equal breath sounds bilaterally, clear to auscultation and percussion. No rales, rhonchi or wheezes noted. No increased work of breathing, no retractions or nasal flaring. Abdomen/GI: Soft, non-tender, with normal bowel sounds. No distension or tympany. No guarding or rebound. No evidence of tenderness throughout. Back: No spinal tenderness. No costovertebral tenderness. Full range of motion. Female : Normal external genitalia. Skin: Warm, dry with normal turgor. Normal color with no rashes, no lesions, and no evidence of cellulitis. MS/ Extremity: Pulses equal, no cyanosis. Neurovascular intact. Full, normal range of motion., bilateral aka Neuro: Awake and alert, GCS 15, oriented to person, place, time, and situation. Cranial nerves II-XII grossly intact. Motor strength 5/5 in all extremities. Sensory grossly intact. Cerebellar exam normal. Normal gait. Psych: Awake, alert, with orientation to person, place and time. Behavior, mood, and affect are within normal limits. 22:02 Head/face: Noted is contusion, swelling, that is moderate, of the right islam, 22:02 ECG was reviewed by the Attending Physician. Vital Signs: 19:49 BP 147 / 85; Pulse 98; Resp 16; Temp 98.2(TE); Pulse Ox 100% ; Weight 113.4 kg (R); jb4 Height 5 ft. 9 in. ; 19:49 Body Mass Index 36.92 (113.40 kg, 175.26 cm) jb4 Julianne Coma Score: 22:19 Eye Response: spontaneous(4). Motor Response: obeys commands(6). Verbal Response: neisha oriented(5). Total: 15. MDM: 20:03 Medical Screening Exam initiated neisha 22:05 Differential Diagnosis: aortic aneurysm, cardiac arrhythmia, cerebrovascular accident, neisha GI bleed, idiopathic syncope, pseudo seizure, seizure, sepsis, transient ischemic attack, vasovagal episode. Data reviewed: vital signs, nurses notes, EMS record, lab test result(s), EKG, radiologic studies, CT scan, plain films. Consideration of Admission/Observation Escalation of care including admission/observation considered. I considered the following discharge prescriptions or medication management in the emergency department Medications were administered in the Emergency Department. See MAR. Independent interpretation of the following test(s) in the Emergency Department EKG: See my EKG interpretation above. Test considered but Not performed: MRI: no mri available. Care significantly affected by the following chronic conditions: Hypertension, Obesity, recent cervical fusion. 05/04 19:49 Order name: Basic Metabolic Panel; Complete Time: 21:58 page hospital 05/04 19:49 Order name: CBC with Diff; Complete Time: 21:58 page hospital 05/04 19:49 Order name: Hepatic Function; Complete Time: 21:58 page hospital 05/04 19:49 Order name: Magnesium; Complete Time: 21:58 05/04 19:49 Order name: Protime (+inr); Complete Time: 21:58 05/04 19:49 Order name: Ptt, Activated; Complete Time: 21:58 05/04 19:49 Order name: Troponin High Sensitivity; Complete Time: 21:58 page hospital 05/04 20:37 Order name: NT PRO-BNP; Complete Time: 21:58 EDMS 05/04 20:37 Order name: Lipase; Complete Time: 21:58 EDMS 05/04 19:49 Order name: Chest Single View XRAY; Complete Time: 21:58 jb4 05/04 20:26 Order name: CT Head C Spine; Complete Time: 21:58 neisha 05/04 20:08 Order name: EKG; Complete Time: 20:09 neisha 05/04 19:49 Order name: Cardiac monitoring; Complete Time: 19:55 jb4 05/04 19:49 Order name: EKG - Nurse/Tech; Complete Time: 19:55 jb4 05/04 19:49 Order name: IV Saline Lock; Complete Time: 19:55 jb4 05/04 19:49 Order name: Labs collected and sent; Complete Time: 20:34 jb4 05/04 19:49 Order name: NPO; Complete Time: 19:55 jb 05/04 19:49 Order name: O2 Per Protocol; Complete Time: 19:55 page hospital 05/04 19:49 Order name: O2 Sat Monitoring; Complete Time: 19:55 page hospital 05/04 22:00 Order name: PO challenge: juice; Complete Time: 22:21 neisha EC:02 Rate is 94 beats/min. Rhythm is regular. QRS [place] is Normal. MA interval is prolonged neisha at 218 msec. QT interval is normal. No Q waves. T waves are Normal. No ST changes noted. Clinical impression: NSR w/ Non-specific ST/T Changes and No evidence of ischemia. Administered Medications: 22:21 Drug: Potassium PO Effervescent Tablet 50 mEq PO once; dissolve in 4 ounces of water or jb4 juice Route: PO; 23:26 Follow up: Response: No adverse reaction ha1 22:21 Drug: NS 0.9% with KCl IV 20 mEq/L 1000 ml IV at 125 ml/hr continuous Route: IV; Rate: jb4 125 ml/hr; Site: right hand; 23:26 Follow up: Response: No adverse reaction; IV Status: Infusion continued ha1 Disposition Summary: 05/04/24 22:07 Transfer Ordered Notes: Transfer Location: [facility] neisha Reason: Higher level of care neisha Condition: Stable neisha Problem: new neisha Symptoms: have improved neisha Accepting Physician: to [facility](05/04/24 23:27) ha1 Diagnosis - Syncope Near neisha - Unspecified injury of head, initial encounter neisha - Traumatic subdural hemorrhage - right neisha - Obesity, unspecified neisha - Hypokalemia neisha Forms: - Medication Reconciliation Form neisha - SBAR form neisha Critical care time excluding procedures: 22:19 Critical care time: Bedside Care: 20 minutes, Consultation: 15 minutes, Family neisha Intervention: 10 minutes. Total time: 45 minutes Signatures: Dispatcher [employer] EDMS Gilberto Macias MD MD cha Bryson, James, RN RN jb4 Misty Cordero, RN RN ha1 Corrections: (The following items were deleted from the chart) 19:49 19:49 BASIC METABOLIC PANEL+C.LAB.BRZ ordered. EDMS EDMS 19:49 19:49 CBC+H.LAB.BRZ ordered. EDMS EDMS 19:49 19:49 HEPATIC FUNCTION+C.LAB.BRZ ordered. EDMS EDMS 19:49 19:49 MAGNESIUM+C.LAB.BRZ ordered. EDMS EDMS 19:49 19:49 PROTIME (+INR)+COAG.LAB.BRZ ordered. EDMS EDMS 19:49 19:49 PTT, ACTIVATED+COAG.LAB.BRZ ordered. EDMS EDMS 19:49 19:49 Troponin High Sensitivity+C.LAB.BRZ ordered. EDMS EDMS 19:49 19:49 Chest Single View+RAD.RAD.BRZ ordered. EDMS EDMS 20:32 20:09 Head Brain Wo Cont+CT.RAD.BRZ ordered. EDMS EDMS 20:38 20:09 PROBNP+C.LAB.BRZ ordered. EDMS EDMS 20:38 20:09 LIPASE+C.LAB.BRZ ordered. EDMS EDMS 23:27 22:07 to [facility] neisha ha1
[2024-05-04] MEDS ORDERED: NS KCL 20MEQ 1,000 ML IV ONE (22:09)
[2024-05-04] MEDS ORDERED: POTASSIUM 25 MEQ EFFERV TAB ONE (22:09)
[2024-05-05 03:54] VITALS: BP 147/85; TEMP 98.2; O2SAT 100
== END 2024-05-04 23:27 | disposition short-term general hospital (02) ==
LOC: ER 19:23
DX: S06.5X0A Traumatic subdural hemorrhage without loss of consciousness, initial encounter (principal); S00.83XA Contusion of other part of head, initial encounter; E87.6 Hypokalemia; E66.9 Obesity, unspecified; I10 Essential (primary) hypertension
CPT/HCPCS: 85025; 80048; 36415; 83735; 85610; 80076; 85730; 84484; 83690; 83880; 70450; 72125; 71045; 96360; 99285; J3480